=== PATIENT | male | born 1980 | race Caucasian/White ===

== ENCOUNTER 2017-12-19 09:11 | Emergency (ER) | payer BC ==
[~2017-12-19] VITALS: Ht 172.7 cm; Wt 76.8 kg
[2017-12-19 09:13] VITALS: TEMP 36.5; Ht 172.7 cm; Wt 76.8 kg
--- NOTE | 2017-12-19 11:49 | Urology Consultation ---
History General Date of Service: Dec 19, 2017. Chief Complaint: bleeding left vasectomy site Primary Care Physician: No Doctor, Assigned Pt seen a urologist before?: Yes If yes, why?: vasectomy History of Present Illness Patient presents to ER with bright red bleeding from the vasectomy site. He had his vas yesterday afternoon at the [facility]. He felt quite good post-op yesterday evening and decided to go to a [employer] house to play pool. He was careful to avoid any heavy lifting but did not apply any ice or pressure to the incisions. He does admit he was told to stay home to apply ice and pressure. In the middle of the night he noted persistent bleeding fro the incision and worsening swelling and bruising of the scrotum. I spoke with him at about 1:30am and advised firm pressure over the scrotum. They updated me at 7am that it was still bleeding. We made arrangements to see him. He is not having any significant pain. He showered this am. Laboratory Labs were reviewed and are within normal limits unless listed below. Labs are available in the chart and at [facility] Past History no pertinent history Family History not relevant for this issue History of MDRO No Allergies Coded Allergies: No Known Allergies (Unverified , 12/19/17) Medications Home Medications: Home Meds and Scripts Medications Dose Route/Sig Max Daily Dose Days Date Category No Active Prescriptions or Reported Medications Rx Physical Exam Vital Signs: Vital Signs Past 12 Hours Date Time Temp Pulse Resp B/P (MAP) Pulse Ox O2 Delivery O2 Flow Rate FiO2 12/19/17 10:43 60 16 121/70 99 Room Air 12/19/17 09:13 36.5 58 17 108/79 98 Room Air Physical Exam: General Appearance: WD/WN, no apparent distress, + thin Eyes: bilateral eyes normal inspection Genitourinary - Male: Scrotum: pertinent finding (he has mild bruising of the dependent scrotum but no swelling. The left upper scrotal vas site is 5mm open and draining bright red blood. no crepitance. ) Assessment & Plan Assessment & Plan persistent active bleeding from vasectomy site left side. I carefully examined the wound and the bleeding seems to be active more of an ooze, non pulsatile, bright red and coming from close the the surface. It does not seem to be welling up from deep in the scrotum. I elevated the skin and some cremasters and applied very firm 5 minute pressure. This seemed to stop the bleeding. I applied a new clean white non bloody gauze and applied another 5 minutes of pressure to just skin and the gauze remained clear. I see no bleeding. I had patient cough, and gently move around to stress the area. He did not resume bleeding. He ambulated to bathroom, voided and returned to bed. No bleeding was noted. We agree to send him home, He will rest and apply pressure and ice to scrotum next 2 days. I gave slip off work for Thursday. I explained to patient and his that this bleeding and the ER trip for additional treatment is a post-operative complication which will likely be reported to the state. He may receive a letter in the mail to this effect. He will apply antibiotic ointment to incision twice daily and delay a shower until Thursday.
[2017-12-19 12:23] VITALS: BP 112/73; PULSE 56; O2SAT 97
--- NOTE | 2017-12-20 15:27 | EMERGENCY ROOM VISIT NOTE ---
ED Visit Note First contact with patient: 09:21 Chief Complaint: I'm bleeding from my vasectomy site. History of Present Illness: Mr. Silverman is a 37-year-old white male who ambulates into the ED accompanied by his complaining of bleeding from his surgical vasectomy site. Patient reports he had a vasectomy yesterday afternoon at Dr. Castillo office at the [facility]. He reports postoperatively he was fine. He reports he was instructed to go home, rest and use ice for pain and/or swelling. He reports he went to a friend's [employer] last night and was playing pool but was not doing any heavy lifting. He reports when he got home he noticed blood in his underwear and contacted Dr. Castillo. She gave him overnight instructions and when he awoke this morning he reports the surgical site was still bleeding. She recommended that he come to her office for follow-up instead he came to the ED. Currently patient's only complaint is bleeding from his vasectomy site on the left scrotum. He reports he has noted some bruising in the area but does not have any pain over the scrotum or the testicle. He has no bleeding from other surgical wounds. He denies fevers, chills, sweats, urinary symptoms, hematuria. Review of Systems: As noted above in history of present illness. Past Medical History: As previously noted. Current Medications: Patient denies. Allergies to Medications: Patient denies. Social History: Patient is currently employed; he feels safe in his home environment; he admits to tobacco use and denies alcohol use. Physical Examination: Vital Signs: Date Time Temp Pulse Resp B/P (MAP) Pulse Ox O2 Delivery O2 Flow Rate FiO2 12/19/17 12:23 56 16 112/73 97 Room Air 12/19/17 10:43 60 16 121/70 99 Room Air 12/19/17 09:13 36.5 58 17 108/79 98 Room Air GENERAL: 37-year-old male in no acute distress, nontoxic-appearing, afebrile and hemodynamically stable. NEUROLOGICAL: Awake, alert and oriented to person, place and time. Answering questions appropriately and following commands. Normal gait. Good hand eye coordination. SKIN: Warm, dry and pink. HEART: Regular rate and rhythm. No gallops, rubs or murmurs are appreciated. ABDOMEN: Flat, soft and nontender. Positive bowel sounds in all quadrants. No guarding, rigidity or organomegaly. GENITALS: Mature, circumcised male. No trauma or lesions over the penis. Scrotum shows recent surgical sites. Over the left scrotum there is bleeding from one of the surgical sites. On palpation he has no tenderness over this area. There is no testicular tenderness or fullness of the scrotum/testicles. Chest inferior to the surgical site there is some dependent ecchymosis without tenderness. No local lymphadenopathy. ED Course: Patient is assessed as noted above. Patient's medication list was reviewed. Direct pressure was used on the wound for about 5 minutes but the wound continued to believe. Patient's case was consulted with Dr. Castillo; she came to see the patient in the emergency department. Please see her notes and orders for her assessment and disposition/plan. Patient was reassessed prior to departure and remained pain-free. Clinical Impression: Scrotal surgical incision bleeding. Disposition: Patient discharged home accompanied by his ; prior to departure he was reassessed and subjectively reported that he was pain and symptom-free. Plan: Patient was encouraged to continue care that was defined by Dr. Castillo. Patient was encouraged return ED for any return of bleeding, signs of infection or any new/concerning symptoms.
== END 2017-12-19 12:24 | disposition home or self-care (01) ==
LOC: C.EDB 09:13 → C.EDC 12:24
DX: N99.820 Postprocedural hemorrhage of a genitourinary system organ or structure following a genitourinary system procedure (principal); Y84.8 Other medical procedures as the cause of abnormal reaction of the patient, or of later complication, without mention of misadventure at the time of the procedure; Z98.52 Vasectomy status